=== PATIENT | female | born 1995 | race Caucasian/White ===

== ENCOUNTER 2019-03-31 19:41 | Emergency (ER) | payer MEDICAID ==
[~2019-03-31] VITALS: Ht 154.9 cm; Wt 54.0 kg
[2019-03-31 19:46] VITALS: BP 132/71; PULSE 63; RESP 18; Ht 154.9 cm; Wt 54.0 kg
[2019-03-31] MEDS ORDERED: ACET325T33 PO (20:30)
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
== END 2019-03-31 21:00 | disposition home or self-care (01) ==
LOC: FTE 19:41
DX: R51 Headache (principal)
CPT/HCPCS: 99282